=== PATIENT | female | born 1945 | race Caucasian/White ===

== ENCOUNTER 2017-08-20 09:45 | Inpatient (IN) | payer OTHER ==
[~2017-08-20] VITALS: Ht 165.1 cm; Wt 102.9 kg
[2017-08-20 10:09] LABS: HEMATOCRIT 39.3 % (36.0-46.0); HEMOGLOBIN 12.9 G/DL (11.9-15.5); MCH 29.1 PG (29.0-34.0); MCHC 32.8 G/DL (30.0-36.0); MCV 88.5 FL (83-99); PLATELET COUNT 204 K/uL (156-360); RBC DIS.WIDTH-CV 13.4 % (11.8-14.6); RBC DIS.WIDTH-SD 43.8 % (39-53); RED BLOOD COUNT 4.44 M/uL (3.80-5.20); WHITE BLOOD COUNT 5.6 K/uL (4.1-10.2)
[2017-08-20 10:18] LABS: ALBUMIN 3.8 g/dL (3.2-4.8)
[2017-08-20 10:19] LABS: CHLORIDE 106 mEq/L (99-109); POTASSIUM 4.1 mEq/L (3.7-5.4); SODIUM 140 mEq/L (136-147)
[2017-08-20 10:21] LABS: GLUCOSE 111 mg/dL (70-99); TOTAL PROTEIN 6.4 g/dL (6.4-8.3)
[2017-08-20 10:23] LABS: TOTAL BILIRUBIN 0.3 mg/dL (0.0-1.0)
[2017-08-20 10:25] LABS: ALKALINE PHOSPHATASE 61 IU/L (3-129); CREATININE 0.8 mg/dL (0.6-1.3); GFR ESTIMATE (CALCULATED) > 59 mL/min/
[2017-08-20 10:26] LABS: AST (GOT) 19 IU/L (2-34); UREA NITROGEN (BUN) 11 mg/dL (9-23)
[2017-08-20 10:27] LABS: ALT (GPT) 23 IU/L (3-49)
[2017-08-20 10:30] LABS: TROP-I INTERPRETATION NEGATIVE; TROPONIN-I < 0.01 ng/mL (0.0-0.30)
[2017-08-20 10:59] LABS: APPEARANCE CLOUDY ((CLEAR)); BILIRUBIN NEGATIVE; BLOOD MODERATE; COLOR YELLOW ((YELLOW)); GLUCOSE (STRIP) NEGATIVE; KETONES 5; LEUKOCYTES NEGATIVE; NITRITE NEGATIVE; PROTEIN (STRIP) NEGATIVE; SPECIFIC GRAVITY 1.009 (1.000-1.030); UROBILINOGEN 0.2 MG/DL (0.2-1.0)
[2017-08-20] MEDS ORDERED: OLMESARTAN MEDOX5 MG PO (11:03)
[2017-08-20] MEDS ORDERED: MELOXICAM7.5 MG PO (11:03)
[2017-08-20] MEDS ORDERED: ROSUVASTATIN CA10 MG PO (11:04)
[2017-08-20 11:05] LABS: BACTERIA RARE /HPF; EPITHELIAL CELLS 4+ /HPF; HYALINE CASTS 20-30 /LPF; MUCUS TRACE /LPF; UCUL ADDED? NO; WHITE BLOOD CELLS 0-5 /HPF (0-5)
[2017-08-20 13:41] LABS: THYROTROPIN (TSH) 5.8 MIU/L (0.4-5.5)
[2017-08-20 13:45] LABS: HEMOGLOBIN A1c (GLYCOHEMOGLOB) 5.6 % (Below 5.7)
[2017-08-20 17:15] LABS: TROP-I INTERPRETATION NEGATIVE; TROPONIN-I 0.02 ng/mL (0.0-0.30)
[2017-08-20 18:27] VITALS: BP 150/65
[2017-08-20 19:15] VITALS: BP 119/82
[2017-08-20 22:20] LABS: TROP-I INTERPRETATION NEGATIVE; TROPONIN-I 0.02 ng/mL (0.0-0.30)
[2017-08-21 00:05] VITALS: BP 127/63
[2017-08-21 05:00] VITALS: BP 145/63
[2017-08-21 06:17] LABS: CHLORIDE 108 MEQ/L (99-109); CREATININE 0.7 MG/DL (0.6-1.3); GFR ESTIMATE (CALCULATED) > 59 mL/min/; GLUCOSE 112 mg/dL (70-99); POTASSIUM 3.7 MEQ/L (3.7-5.4); SODIUM 142 MEQ/L (136-147); UREA NITROGEN (BUN) 11 mg/dL (9-23)
[2017-08-21 07:22] VITALS: BP 142/68
[2017-08-21] MEDS ORDERED: ELIQUIS5 MG PO (09:08)
[2017-08-21] MEDS ORDERED: ROSUVASTATIN CA10 MG PO (09:08)
== END 2017-08-21 12:06 | disposition home or self-care (01) | DRG 310 ==
LOC: EME 09:45 → 4EAST 10:54 → EDOF 10:54 → ENRESERV 10:55 → 4EAST 18:11
PROVIDERS: Internal Medicine; Physician Assistant
DX: I48.0 Paroxysmal atrial fibrillation (principal); I10 Essential (primary) hypertension; E78.5 Hyperlipidemia, unspecified; Z98.890 Other specified postprocedural states; Z90.721 Acquired absence of ovaries, unilateral; Z90.49 Acquired absence of other specified parts of digestive tract; Z98.51 Tubal ligation status
CPT/HCPCS: 71046; 80048; 80053; 81003; 83036; 83735; 84439; 84443; 84484; 85027; 93005; 93306; 99281; 99284; J1160; J7030; J7050